=== PATIENT | male | born 1955 | race Caucasian/White ===

== ENCOUNTER → 2017-09-21 | Outpatient (CLI) | payer BC ==
[~2017-09-21] MED LIST: NAPR1TAB9 PO
--- NOTE | 2017-09-21 19:05 | DIAGNOSTIC IMAGING REPORT ---
MRI OF THE RIGHT KNEE WITHOUT CONTRAST CLINICAL HISTORY: Chronic right knee pain with recurrent instability. Several falls. COMPARISON STUDY: None. TECHNIQUE: Utilizing a 1.5 Antonietta magnet and dedicated coil, multiplanar, multiecho imaging of the right knee was performed without intravenous or intraarticular contrast. FINDINGS: Alignment of the right knee is anatomic. Extensor mechanism is intact. There is a trace right knee joint effusion. A multiloculated cystic abnormality posterior to the posterior cruciate ligament measuring 1.3 cm suggests a ganglion cyst. There may be smaller ganglion cysts. The cruciate and collateral ligaments are intact. No medial meniscal tear is present. There is an oblique tear of the body and posterior horn of the lateral meniscus. There is moderate tricompartmental chondrosis. There is no full-thickness cartilage defect. There is no subchondral signal abnormality. No suspicious marrow replacement is present. There is no marrow edema. IMPRESSION: 1. Oblique tear of the body and posterior horn of the lateral meniscus. 2. 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 3. Trace right knee joint effusion. 4. Intact cruciate and collateral ligaments. Electronically signed by: Dawood Rosen M.D. 09/21/2017 7:03 PM Dictated Date/Time: 09/21/2017 6:59 PM
== END | disposition home or self-care (01) ==
LOC: C.MRI 17:31
PROVIDERS: ATTEND Family Medicine
DX: M25.561 Pain in right knee (principal); G89.29 Other chronic pain; S83.281A Other tear of lateral meniscus, current injury, right knee, initial encounter; M25.861 Other specified joint disorders, right knee; X58.XXXA Exposure to other specified factors, initial encounter